=== PATIENT | male | born 1970 | race Caucasian/White ===

== ENCOUNTER 2024-06-28 04:17 | Day surgery (SDC) | payer OTHER ==
[2024-06-27 15:03] VITALS: BMI 27.8
[2024-06-28] MEDS ORDERED: ELECTROLYTE-148 SOLN 1,000 ML IV SCH (11:15)
[2024-06-28] MEDS ORDERED: KETOROLAC TROMETHAMINE 30 MG/1 ML VIAL ONE (11:27)
[2024-06-28] MEDS ORDERED: ONDANSETRON 4 MG/2 ML VIAL ONE (11:27)
[2024-06-28] MEDS ORDERED: MIDAZOLAM HCL 2 MG/2 ML SINGLE DOSE VIAL ONE (11:30)
[2024-06-28] MEDS ORDERED: ACETAMINOPHEN INJECTION 100 ML ONE (12:05)
[2024-06-28] MEDS ORDERED: ceFAZolin SODIUM 1 GM VIAL ONE (12:19)
[2024-06-28] MEDS: ceFAZolin 2 GRAM PREMIX BAG IVPB ONE (12:21)
[2024-06-28] MEDS: IOHEXOL 300 MG/ML INFUS..BTL IV ONE (12:24)
[2024-06-28 13:26] VITALS: PULSE 82
[2024-06-28 13:56] VITALS: RESP 20
[2024-06-28 14:37] VITALS: BP 114/71; TEMP 98.2
== END 2024-06-28 15:10 | disposition home or self-care (01) ==
LOC: JASU-SURG 04:17
PROVIDERS: ATTEND Urology
PROC: 0TF6XZZ Fragmentation in Right Ureter, External Approach (ICD-10-PCS; principal; 2024-06-28 11:30)
DX: N20.1 Calculus of ureter (principal)
CPT/HCPCS: J0131